=== PATIENT | female | born 1960 | race Caucasian/White ===

== ENCOUNTER → 2019-10-27 07:09 | Outpatient (CLI) | payer OTHER, SELFPAY ==
[2019-10-27 08:28] LABS: Add Manual Diff / Slide Review NO; Basophils Absolute Auto 0 /uL (0-100); Basophils Percent Auto 0.8 % (0-2); Eosinophils Absolute Auto 100 /uL (0-450); Eosinophils Percent Auto 1.7 % (2-4); Hematocrit 39.6 % (36-46); Hemoglobin 13.5 g/dL (12.0-16.0); Lymphocytes Absolute Auto 1700 /uL (1100-4500); Lymphocytes Percent Auto 37.1 % (25-40); Mean Corpuscular HGB Conc 34.1 % (30-36); Mean Corpuscular Hemoglobin 30.8 PG (26-34); Mean Corpuscular Volume 90.5 fL (80-100); Monocytes Absolute Auto 400 /uL (0-900); Monocytes Percent Auto 8.1 % (3-14); Neutrophils Absolute Auto 2400 /uL (1500-7000); Neutrophils Percent Auto 52.3 % (50-75); Platelet Count 262 X10^3/uL (150-400); Red Blood Cell Count 4.38 X10^6/uL (4.0-5.2); Red Cell Distribution Width 13.9 % (11.6-14.8); White Blood Cell Count 4.6 X10^3/uL (4.5-11.0)
[2019-10-27 08:44] LABS: BUN Creatinine Ratio 22.4 (6-22); Blood Urea Nitrogen 17 mg/dL (7-17); Calcium 9.6 mg/dL (8.4-10.2); Carbon Dioxide 26 mmol/L (22-32); Chloride 106 mmol/L (98-107); Cholesterol 243 mg/dL (140-199); Estimated Glomerular Filt Rate > 60.0 mL/min (>60); Glucose 110 mg/dL (70-100); HDL Cholesterol 45 mg/dL (40-60); HEMOLYSIS < 15 (0-50); LDL Cholesterol Calculated 165 mg/dL (<100); Potassium 4.6 mmol/L (3.4-5.1); Sodium 139 mmol/L (137-145); Triglycerides 164 mg/dL (35-150)
[2019-10-27 08:56] LABS: Free T3, Triiodothyronine Free 3.39 pg/mL (2.77-5.27); Free T4, Direct Thyroxine 0.85 ng/dL (0.78-2.19); Vitamin D 25 Hydroxy (D3) 32.1 ng/mL (30.0-100.0)
== END ==
PROVIDERS: PCP Family Medicine; Referring Provider Family Medicine; Visit Provider Family Medicine
DX: Z13.21 Encounter for screening for nutritional disorder (principal); Z13.220 Encounter for screening for lipoid disorders; Z13.29 Encounter for screening for other suspected endocrine disorder
CPT/HCPCS: 36415; 80048; 80061; 82306; 84439; 84443; 84481; 85025

== ENCOUNTER → 2019-10-31 14:28 | Outpatient (CLI) | payer OTHER, SELFPAY ==
[2019-11-01 23:18] LABS: COVID19 Sendout Not Detected (Not Detect)
== END ==
PROVIDERS: PCP Family Medicine; Visit Provider Physician Assistant
DX: Z01.812 Encounter for preprocedural laboratory examination (principal)
CPT/HCPCS: 87635

== ENCOUNTER 2019-11-03 08:53 | Day surgery (SDC) | payer OTHER, SELFPAY ==
[2019-11-03] VITALS (8 sets, daily range): BP systolic 121–148; BP diastolic 83–98; PULSE 63–97; RESP 10–18; TEMP 36.2–36.7; O2SAT 94–99; BMI 29.6
--- NOTE | 2019-11-03 | PATH_ITS ---
[facility] Accession Number: [id number] . 01 Material submitted: . PART A: duodenum - DUODENUM PART B: stomach - GASTRIC ANTRUM PART C: stomach - GASTRIC BODY PART D: esophagus - DISTAL ESOPHAGUS . 02 Diagnosis: A. Duodenum, Biopsy: Gastric heterotopia. Negative for active inflammation, features of sprue, dysplasia, or malignancy. . B. Gastric Antrum, Biopsies: Gastric antral mucosa with mild chronic inflammation. Negative for Helicobacter organisms by immunohistochemistry. Negative for intestinal metaplasia. Negative for dysplasia or malignancy. . C. Gastric Body, Biopsy: Gastric body mucosa with minimal chronic inflammation. No evidence of Helicobacter organisms on H/E stain. Negative for intestinal metaplasia. Negative for dysplasia or malignancy. . D. Distal Esophagus, Biopsy: Proximal gastric mucosa with mild chronic inflammation. Negative for specialized intestinal metaplasia, dysplasia, or malignancy. . [facility] 11/08/2019 [facility]2 Local . 02 Electronically signed: . Rogelio Olvera MD, PhD, Pathologist NPI- [id number] . 01 Gross description: . Part A: DUODENUM: Received in formalin is 1 fragment(s) of jimenez, soft tissue measuring 0.5 x 0.2 x 0.2 cm submitted entirely in 1 cassette(s) Part B: GASTRIC ANTRUM: Received in formalin is 1 fragment(s) of jimenez, soft tissue measuring 0.2 x 0.2 x 0.1 cm submitted entirely in 1 cassette(s) Part C: GASTRIC BODY: Received in formalin is 1 fragment(s) of jimenez, soft tissue measuring 0.3 x 0.2 x 0.1 cm submitted entirely in 1 cassette(s) Part D: DISTAL ESOPHAGUS: Received in formalin is 1 fragment(s) of jimenez, soft tissue measuring 0.2 x 0.2 x 0.2 cm submitted entirely in 1 cassette(s) /QBJ 11/04/2019 0850 Local . 02 Microscopic: . B. An immunohistochemical stain was performed to evaluate for Helicobacter organisms and is negative. The control stain showed appropriate reactivity. . * This test was developed and its performance characteristics [facility] by [facility]. It has not been cleared or approved by the U.S. Food and Drug Administration. The FDA has determined that such clearance or approval is not necessary. This test is used for clinical purposes. It should not be regarded as investigational or for research. . 02 Pathologist provided ICD-10: K21.9, K29.70 . 02 CPT . 393421, 821589, 068444, 371432, Q16602 Performed at: 01 [facility] [address] [id number] MD Bernard Burks MD Phone: [phone] Performed at: 02 [facility] [place] [address] [place], [place] [id number] MD Gale Gay MD Phone: [phone]
--- NOTE | 2019-11-03 10:03 | PM.PREOP ---
Pre-operative Note COVID-19 COVID-19 status: Negative Result date/Date tested (Pos, Neg/Pending): 10/31/19 Interval Note History & Physical reviewed/Exam performed by Physician: Yes Changes to H&P: No ASA Class (for procedural sedation): II
--- NOTE | 2019-11-03 10:12 | P.OP.ENDO_ITS ---
Operative Date/Time/Diagnoses Date of procedure: 11/03/19 Time of procedure: 10:12 Pre-op diagnosis: Epigastric pain, left lower quadrant pain, patient has never had a colonoscopy before Post-op diagnosis: other (gastritis, shallow gastric erosions, reflux esophagitis) Procedure & Clinicians Study performed: Esophagogastroduodenoscopy Cold forceps biopsies of duodenum, gastric antrum, gastric body, distal esopha tyson Colonoscopy Procedural sedation by the endoscopist Indications: 59-year-old woman with epigastric pain, and left lower quadrant pain, and has never had a colonoscopy or EGD Surgeon: Kenisha Mooney Procedure Notes SCOAP/Timeout: Performed Procedure in detail: The patient was brought to the room and placed in left lateral decubitus position with all bony prominences padded. A bite block was positioned in the patient's mouth to protect the lips, teeth, and tongue for the procedure. A time-out was performed and then the patient was given procedural sedation starting with 4 mg of Versed and 100 mcg of fentanyl. A total of 8 mg of Versed and 250 micro g of fentanyl were given for the entire procedure including EGD and colonoscopy. Vitals were monitored throughout the procedure and remained stable. Once adequately sedated, the procedure was begun. The lubricated gastroscope was passed through the bite block and across the tongue and into the esophagus without incident. A tubular view of the esophagus was maintained as the scope was advanced through the esophagus and into the stomach. The scope was advanced through the stomach and to the pylorus. The scope was gently popped through the pylorus and into the duodenal bulb. The scope was flexed and advanced into the second and third portions of the duodenum. The duodenum and duodenal bulb revealed low grade duodenitis with some acute and chronic features. Biopsies were taken. The scope was withdrawn into the stomach. The stomach revealed some acute and chronic gastritis with shallow erosions. The scope was retroflexed and the gastric cardia was examined. There was a small Hill grade 2 hiatal hernia. The scope was then straightened, and withdrawn into the esophagus. There was gastric mucosa coming up into the esophagus circumferentially for 2cm above the hiatus. This was biopsied. The scope was then withdrawn through the esophagus with a tubular view. The scope was then withdrawn from the patient attention was turned to the colonoscopy portion of the procedure. A rectal exam was performed revealing no abnormalities. The colonoscope was then introduced to the rectum and advanced to the cecum in the usual fashion. The cecum was identified by the appendiceal orifice, the mucosal tri-fold, and the ileocecal valve. The colon was very tortuous, requiring advanced maneuvers to reach the cecum safely. The scope was then retracted while rotating side to side and examining each mucosal fold. At the conclusion of the procedure grade 1-2 internal hemorrhoids without stigmata of bleeding were seen within the anal canal. The scope was then withdrawn from the rectum the procedure was concluded. The patient tolerated the procedure well and was transferred to the PACU in stable condition. Scope withdrawal time: 8 Sedation minutes: 46 Findings: gastritis, hiatal hernia (Small) and other findings (Duodenitis, reflux esophagitis) Specimen(s): other (Biopsy of duodenum, stomach, distal esophagus) Complications: none Impression: Gastritis, esophagitis, duodenitis, normal colon Post-procedure Recommendations: Colonscopy in 10 years and Other recommendation (Start taking a PPI or famotidine for gastritis) Follow up: as needed Disposition: PACU
[2019-11-03] MEDS: LIDOCAINE 4% SOLN 50 ML 20 ML TOP (10:20)
[2019-11-03] MEDS: fentaNYL 250 MCG/5 ML INJ IV (10:46)
[2019-11-03] MEDS: MIDAZOLAM 5 MG/5 ML VIAL IV (10:46)
== END 2019-11-03 12:27 | disposition home or self-care (01) ==
PROVIDERS: PCP Family Medicine; Referring Provider Family Medicine; Visit Provider Surgery
PROC: 0DJ08ZZ Inspection of Upper Intestinal Tract, Via Natural or Artificial Opening Endoscopic (ICD-10-PCS; CPT 43235; principal; 2019-11-03 10:00)
PROC: 0DJD8ZZ Inspection of Lower Intestinal Tract, Via Natural or Artificial Opening Endoscopic (ICD-10-PCS; CPT 45378; 2019-11-03 10:00)
DX: K64.0 First degree hemorrhoids (principal); K44.9 Diaphragmatic hernia without obstruction or gangrene; K21.0 Gastro-esophageal reflux disease with esophagitis; K29.80 Duodenitis without bleeding; K29.50 Unspecified chronic gastritis without bleeding
CPT/HCPCS: 43239; 45378; 99152; 99153; J2250; J3010

== ENCOUNTER → 2019-11-16 10:43 | Outpatient (CLI) | payer OTHER, SELFPAY ==
--- NOTE | 2019-11-16 10:44 | DI.CT.S_ITS ---
PROCEDURE: CT ABDOMEN PELVIS W CON INDICATIONS: lower left quadrant pain TECHNIQUE: After the administration of oral and intravenous contrast, 5 mm thick sections acquired from the diaphragms to the symphysis. 5 mm thick coronal and sagittal reformats were performed. For radiation dose reduction, the following was used: automated exposure control, adjustment of mA and/or kV according to patient size. COMPARISON: None. FINDINGS: Image quality: Excellent. ABDOMEN: Lung bases: Lung bases are clear. Heart size is normal. Solid organs: Liver is normal in size and enhancement. Gallbladder appears normal . Biliary system is non-dilated. Pancreas enhances normally. Spleen is normal in size and enhancement. No adrenal nodules. Kidneys are normal in size and enhancement, but shows what appears to be bilateral moderate hydronephrosis without renal cortical thinning or adjacent perinephric edema. No collecting system calculus is found, no mass lesion at the ureteropelvic junction is identified bilaterally. The ureters themselves are free of dilatation traversing inferiorly through the pelvis to the bladder level. Peritoneum and bowel: Stomach, small bowel, and colon loops are normal in caliber and wall thickness. No free fluid or air. Nodes and vessels: No retroperitoneal or mesenteric adenopathy. Aorta and inferior vena cava are normal in caliber. Miscellaneous: No ventral hernias. PELVIS: Genitourinary: Bladder wall thickness is normal. Miscellaneous: No inguinal hernias or adenopathy. There are several pelvic phleboliths. Bones: No suspicious bony lesions. No vertebral body compression fractures. IMPRESSION: 1. A definite acute source of upper abdominal pain is not found. 2. What appears to be the collecting system of each kidney shows a pattern of moderate hydronephrosis. There is no renal cortical thinning or perinephric edema, however. Occasionally peripelvic cysts can produce a false-positive it appearance of hydronephrosis but the appearance from this study is more suggestive of true dilatation of the collecting systems bilaterally potentially from coincidental bilateral ureteropelvic junction stenosis. Urology consultation is likely warranted. Please correlate for whether any prior urinary tract region visualization by CT or MR scanning is available, or by ultrasound. 3. No urinary tract stone is found. No urothelial mass lesion is identified. Several pelvic phleboliths are incidentally noted adjacent to the distal ureters, which bilaterally are free of distension. Dictated by: Jim Cheatham M.D. on 11/16/2019 at 12:36 Approved by: Jim Cheatham M.D. on 11/16/2019 at 12:43
== END ==
PROVIDERS: PCP Family Medicine; Referring Provider Family Medicine; Visit Provider Family Medicine
DX: R10.32 Left lower quadrant pain (principal); I86.2 Pelvic varices
CPT/HCPCS: 74177; Q9967

== ENCOUNTER → 2020-04-16 07:46 | Outpatient (CLI) | payer OTHER, SELFPAY ==
--- NOTE | 2020-04-16 07:47 | DI.NM.S_ITS ---
PROCEDURE: NM RENAL FUNCTION W LASIX RADIOPHARMACEUTICAL: 9.7 mCi Tc-99m MAG3 IV and 40 mg furosemide IV. INDICATIONS: Unspecified hydronephrosis TECHNIQUE: The patient was hydrated orally before the examination was begun. After intravenous administration of Tc-99m MAG3, posterior abdominal radionuclide angiogram and sequential (1 minute each frame) renal images were obtained. A time-activity curve for each kidney was generated and analyzed. To evaluate for obstruction, the patient was given 40 mg furosemide via slow intravenous injection after the start of the examination. Sequential images were obtained for up to an additional 20 minutes. COMPARISON: [facility], CT, CT ABDOMEN PELVIS W CON, 11/16/2019, 11:49. FINDINGS: Perfusion: There is normal vascular flow to both kidneys. Morphology: Both kidneys are normal in size and shape. No dilated collecting systems are seen. The ureters and bladder fill with tracer, and appear normal. Function: Both kidneys demonstrate normal cortical tracer uptake, with gwmx-mi-[id number] activity ranging from 3 to 5 minutes. The right kidney contributes 55.7% of total renal function. The left kidney contributes 44.3% of total renal function. Lasix stimulation: After diuretic administration, there is prompt clearance of tracer activity from the renal collecting systems in both kidneys. The half-time of emptying of tracer activity from the right pelvicaliceal system is 5.9minutes. The half-time of emptying from the left pelvicaliceal system is 4.9 minutes. Normal emptying half-times are less than 10 minutes; borderline ranges are from 10 to 20 minutes. IMPRESSION: 1. No findings to suggest urinary obstruction. 2. Right kidney contributes 55.7% and left kidney 44.3% of total renal function. Dictated by: Lilo Shah M.D. on 04/16/2020 at 9:40 Approved by: Lilo Shah M.D. on 04/16/2020 at 10:13
== END ==
PROVIDERS: PCP Family Medicine; Referring Provider Specialist; Visit Provider Specialist
DX: N13.30 Unspecified hydronephrosis (principal)
CPT/HCPCS: 78708; A9562

== ENCOUNTER → 2020-05-30 16:47 | Outpatient (CLI) | payer OTHER, SELFPAY ==
--- NOTE | 2020-05-30 16:48 | DI.MG.S_ITS ---
BILATERAL DIGITAL SCREENING MAMMOGRAM 3D/2D WITH CAD: 05/30/2020 CLINICAL: Routine screening. Comparison is made to exam dated: 01/27/2013 mammogram - outside location. The tissue of both breasts is heterogeneously dense. This may lower the sensitivity of mammography. Current study was also evaluated with a Computer Aided Detection (CAD) system. No significant masses, calcifications, or other findings are seen in either breast. There has been no significant interval change. IMPRESSION: NEGATIVE There is no mammographic evidence of malignancy. A 1 year screening mammogram is recommended. This exam was interpreted at Station ID: [id number]. NOTE: For mammograms, a report in lay terms will be sent to the patient. Approximately 15% of breast malignancies will not be visualized mammographically. In the management of a palpable breast mass, a negative mammogram must not discourage biopsy of a clinically suspicious lesion. Electronically Signed By: Keegan brito/nahum:05/31/2020 07:49:46 letter sent: Normal Exam ACR BI-RADS Category 1: Negative [id number]
== END ==
PROVIDERS: PCP Family Medicine; Referring Provider Family Medicine; Visit Provider Family Medicine
DX: Z12.31 Encounter for screening mammogram for malignant neoplasm of breast (principal)
CPT/HCPCS: 77063; 77067